=== PATIENT | female | born 1955 | race Caucasian/White ===

== ENCOUNTER 2022-03-23 13:54 | Outpatient (CLI) | payer MEDICARE ==
[~2022-03-23] VITALS: Ht 162.6 cm; Wt 113.4 kg
[2022-03-23] MEDS ORDERED: albuterol 2.5 MG/3 ML nebule NEB ONE (14:45)
== END 2022-03-23 23:59 | disposition home or self-care (01) ==
LOC: RT 13:54
PROVIDERS: ATTEND Internal Medicine
DX: R06.02 Shortness of breath (principal); Z87.891 Personal history of nicotine dependence; Z79.899 Other long term (current) drug therapy
CPT/HCPCS: 94060; 94760